=== PATIENT | male | born 1960 | race African-American/Black ===

== ENCOUNTER 2020-02-05 19:17 | Emergency (ER) | payer SELFPAY ==
[2020-02-05 19:42] VITALS: BP 136/87; PULSE 78; TEMP 99; BMI 26.3
--- NOTE | 2020-02-05 20:07 | PDOC ---
History of Present Illness - General Chief Complaint: Pain Stated Complaint: ELBOW PAIN Time Seen by Provider: 02/05/20 20:00 - History of Present Illness Initial Comments: 02/05/20 20:05 59-year-old male past medical history of hypertension presents for evaluation of left elbow swelling x1 week no systemic symptoms. Past History - Medical History Allergies/Adverse Reactions: Allergies Allergy/AdvReac Type Severity Reaction Status Date / Time No Known Drug Allergies Allergy Verified 01/09/16 21:51 Home Medications: Ambulatory Orders Amlodipine Besylate [Norvasc -] 10 mg PO DAILY #0 tablet 08/24/12 hydrALAZINE HCL [Apresoline -] 50 mg PO TID 08/01/14 Metoprolol Succinate [Toprol Xl -] 12.5 mg PO DAILY 01/09/16 Anemia: No Asthma: No Cancer: Yes (PROSTATE) Cardiac Disorders: No CVA: Yes (2012 NO RESIDUAL) COPD: No CHF: No Dementia: No Diabetes: No GI Disorders: No Disorders: Yes (PROSTATE CA, RENAL CALCULI) HTN: Yes Hypercholesterolemia: Yes Liver Disease: No Seizures: No Thyroid Disease: No - Surgical History Abdominal Surgery: No Appendectomy: No Cardiac Surgery: No Cholecystectomy: No Lung Surgery: No Neurologic Surgery: No Orthopedic Surgery: No - Immunization History Immunization Up to Date: Yes - Psycho-Social/Smoking History Smoking Status: No Smoking History: Never smoked Have you smoked in the past 12 months: No Number of Cigarettes Smoked Daily: 0 - Substance Abuse Hx (Audit-C & DAST Scrn) How often the patient has a drink containing alcohol: Never Score: In Men: 4 or > Positive; In Women: 3 or > Positive: 0 Screen Result (Pos requires Nsg. Audit-10AR): Negative In the last yr the pt used illegal drug/Rx for NonMed reason: No Score: Yes response is considered Positive: 0 Screen Result (Positive result requires Nsg. DAST-10): Negative Review of Systems - Review of Systems Constitutional: No: Fever *Physical Exam - Vital Signs Last Vital Signs Temp Pulse Resp BP Pulse Ox 99 F 78 19 136/87 99 02/05/20 19:38 02/05/20 19:38 02/05/20 19:38 02/05/20 19:38 02/05/20 19:38 - Physical Exam 02/05/20 20:05 Left elbow skin color and temperature normal large area of swelling in the area of the olecranon bursa normal range of motion no pain with passive range of motion no warmth erythema tenderness or sensitivity. Neurovascular intact upper extremity compartments are soft and nontender no gross sensorimotor deficits Medical Decision Making - Medical Decision Making 02/05/20 20:05 Left elbow olecranon bursitis. No indication of septic arthritis or septic bursitis.Compressive dressing applied. Patient instructed not to sleep in comp ressive dressing. No anti-inflammatories because of hypertension. Follow-up with orthopedic surgery for possible aspiration and cortisone injection I do not assess suspect a septic olecranon bursitis I have reviewed the pathophysiology with the patient. They are in agreement with the treatment plan all questions were answered to their satisfaction. Understanding for follow-up without fail was also conveyed to the patient. Again they are in agreement. Discharge - Discharge Information Problems reviewed: Yes Clinical Impression/Diagnosis: Olecranon bursitis Condition: Stable Disposition: HOME - Admission No - Follow up/Referral Referrals: Vidal George MD [Primary Care Provider] - Timothy Marquez DO [Staff Physician] - - Patient Discharge Instructions Additional Instructions: Please do not sleep in a compressive wrap. Tylenol for pain. Return to the emergency room for worsening symptoms. Without fail follow-up with orthopedic surgery in 1 to 2 days for further evaluation and treatment options. - Post Discharge Activity
== END 2020-02-05 20:09 | disposition home or self-care (01) ==
LOC: JERFT 19:17
DX: M70.22 Olecranon bursitis, left elbow (principal)
CPT/HCPCS: 99282-25

== ENCOUNTER 2023-03-17 04:03 | Day surgery (SDC) | payer OTHER ==
[2023-03-16 15:12] VITALS: BMI 25.4
[2023-03-17] MEDS ORDERED: LIDOCAINE HCL 1%, 10 MG/ML (20ML VIAL) ONE (10:36)
[2023-03-17] MEDS ORDERED: BUPIVACAINE HCL/PF 0.5% (5MG/ML) 10 ML VIAL ONE (10:36)
[2023-03-17] MEDS ORDERED: FENTANYL CITRATE/PF 50 MCG/ML VIAL ONE (11:07)
[2023-03-17] MEDS ORDERED: ROCURONIUM BROMIDE 50 MG/5 ML SYRINGE ONE (11:08)
[2023-03-17] MEDS ORDERED: SUCCINYLCHOLINE CHLORIDE 200 MG/10 ML SYRINGE ONE (11:08)
[2023-03-17] MEDS ORDERED: PROPOFOL 20 ML ONE (11:08)
[2023-03-17] MEDS ORDERED: ceFAZolin SODIUM 1 GM VIAL IVPB ONE (11:31)
[2023-03-17] MEDS ORDERED: BUPIVACAINE HCL/PF 0.5% (5MG/ML) 10 ML VIAL IJ ONE ×2 (11:32)
[2023-03-17] MEDS ORDERED: ONDANSETRON 4 MG/2 ML VIAL ONE (12:02)
[2023-03-17] MEDS ORDERED: KETOROLAC TROMETHAMINE 30 MG/1 ML VIAL ONE (12:02)
[2023-03-17] MEDS ORDERED: ceFAZolin SODIUM 1 GM VIAL ONE ×2 (12:02)
[2023-03-17] MEDS ORDERED: NEOSTIGMINE METHYLSULFATE 0.5 MG/1 ML - 10 ML MDV ONE (12:02)
[2023-03-17] MEDS ORDERED: GLYCOPYRROLATE 0.2 MG/1 ML VIAL ONE (12:02)
[2023-03-17] MEDS ORDERED: DEXAMETHASONE SOD PHOSPHATE 4 MG/1 ML VIAL ONE (12:02)
[2023-03-17] MEDS ORDERED: oxyCODONE HCL 5 MG TABLET PO PRN (12:25)
[2023-03-17] MEDS ORDERED: ONDANSETRON 4 MG/2 ML VIAL IVPUSH PRN (12:25)
[2023-03-17] MEDS ORDERED: LACTATED RINGERS SOLUTION 1,000 ML IV SCH (12:30)
[2023-03-17] MEDS ORDERED: oxyCODONE HCL 10 MG SUSTAINED ACTING TABLET ONE (14:20)
[2023-03-17 17:01] VITALS: RESP 20; TEMP 97.3
[2023-03-17 17:04] VITALS: BP 127/83; PULSE 74
== END 2023-03-17 15:42 | disposition home or self-care (01) ==
LOC: JASU-SURG 04:03
PROVIDERS: ATTEND Surgery
PROC: 0YU60JZ Supplement Left Inguinal Region with Synthetic Substitute, Open Approach (ICD-10-PCS; principal; 2023-03-17 10:00)
DX: K40.90 Unilateral inguinal hernia, without obstruction or gangrene, not specified as recurrent (principal)
CPT/HCPCS: 88302-TC; 88304-TC; 88305-TC; 94760; C1781